=== PATIENT | male | born 1950 | race Asian ===

== ENCOUNTER 2018-08-18 08:24 | Day surgery (SDC) | payer MEDICARE, OTHER ==
[2018-08-18] MEDS ORDERED: IOHEXOL 300MG/ML 30 ML BTL (11:11)
[2018-08-18] MEDS: CIPROFLOXACIN 400 MG in D5W 200 ML IVPB (11:40)
[2018-08-18] MEDS ORDERED: PROPOFOL 20 ML (12:23)
[2018-08-18] MEDS ORDERED: ROCURONIUM 50 MG INJ (12:23)
[2018-08-18] MEDS ORDERED: SUGAMMADEX SODIUM 200 MG/2 ML VIAL IV (12:23)
[2018-08-18] MEDS ORDERED: FENTAnyl 50 MCG/ML VIAL IV ×2 (13:00)
[2018-08-18] MEDS ORDERED: hydrALAzine 20 MG INJ IV (13:00)
[2018-08-18] MEDS ORDERED: KETOROLAC 30 MG INJ IV (13:00)
[2018-08-18] MEDS ORDERED: ONDANSETRON 4 MG INJ IV (13:00)
[2018-08-18] MEDS ORDERED: OXYCODONE/ACETAMINOPHEN (5/325) TAB PO ×2 (13:00)
[2018-08-18] MEDS ORDERED: LABETALOL HCL 20MG INJ IV (13:00)
[2018-08-18] MEDS ORDERED: MEPERIDINE 25 MG INJ IV (13:00)
[2018-08-18] MEDS ORDERED: DIPHENHYDRAMINE 50 MG INJ IV (13:00)
[2018-08-18] MEDS ORDERED: EPHEDrine SULFATE 50 MG/5 ML SYG IV (13:00)
[2018-08-18] MEDS ORDERED: ALBUTEROL 0.083% (NEB) 2.5 MG/3 ML AMP HHN (13:00)
[2018-08-18] MEDS: FENTAnyl 50 MCG/ML VIAL IV (13:11)
[2018-08-18] MEDS: METOCLOPRAMIDE 10 MG INJ IV (13:11)
== END 2018-08-18 15:13 | disposition home or self-care (01) ==
LOC: SDS 08:24
DX: N13.5 Crossing vessel and stricture of ureter without hydronephrosis (principal); N20.1 Calculus of ureter
CPT/HCPCS: 52332; 74420

== ENCOUNTER 2018-09-01 06:00 | Day surgery (SDC) | payer MEDICARE, OTHER ==
[~2018-09-01 06:00] MED LIST: CIPROFLOXACIN 400MG/D5W 200 ML IVPB
[2018-09-01] MEDS ORDERED: LIDOCAINE 2% (SDV) 5 ML INJ (07:26)
[2018-09-01] MEDS ORDERED: MIDAZOLAM 1 MG/ML 2 ML INJ (07:26)
[2018-09-01] MEDS ORDERED: CEFAZOLIN 1 GM INJ (07:26)
[2018-09-01] MEDS ORDERED: PROPOFOL 40 ML (07:26)
[2018-09-01] MEDS ORDERED: FENTAnyl 50 MCG/ML VIAL (07:27)
[2018-09-01] MEDS ORDERED: ONDANSETRON 4 MG INJ (07:27)
[2018-09-01] MEDS ORDERED: DEXAMETHASONE 4 MG/ML 1 ML INJ (07:27)
[2018-09-01] MEDS ORDERED: FAMOTIDINE 20 MG INJ (07:27)
[2018-09-01] MEDS ORDERED: ONDANSETRON 4 MG INJ IV (07:30)
[2018-09-01] MEDS ORDERED: MEPERIDINE 25 MG INJ IV (07:30)
[2018-09-01] MEDS ORDERED: HYDROmorphONE 1 MG/5 ML IV SYRINGE IV ×2 (07:30)
[2018-09-01] MEDS ORDERED: OXYCODONE/ACETAMINOPHEN (5/325) TAB PO ×2 (07:30)
[2018-09-01] MEDS ORDERED: FENTAnyl 50 MCG/ML VIAL IV ×2 (07:30)
[2018-09-01] MEDS ORDERED: morphine (1 MG/ML) 10ML SYRINGE IV ×2 (07:30)
[2018-09-01] MEDS ORDERED: ALBUTEROL 0.083% (NEB) 2.5 MG/3 ML AMP HHN (07:30)
[2018-09-01] MEDS ORDERED: DIPHENHYDRAMINE 50 MG INJ IV (07:30)
[2018-09-01] MEDS ORDERED: LABETALOL HCL 20MG INJ IV (07:30)
[2018-09-01] MEDS ORDERED: CIPROFLOXACIN 400MG/D5W 200 ML (07:54)
[2018-09-01] MEDS ORDERED: EPHEDrine SULFATE 50 MG/5 ML SYG (08:11)
[2018-09-01] MEDS ORDERED: FUROSEMIDE 20 MG INJ (08:41)
== END 2018-09-01 10:30 | disposition home or self-care (01) ==
LOC: SDS 06:00
DX: N20.1 Calculus of ureter (principal); N40.0 Benign prostatic hyperplasia without lower urinary tract symptoms; I10 Essential (primary) hypertension
CPT/HCPCS: 50590; 74430

== ENCOUNTER 2018-10-12 12:17 | Day surgery (SDC) | payer MEDICARE, OTHER ==
[2018-10-12] MEDS: CIPROFLOXACIN 400MG/D5W 200 ML IVPB (10:00)
[2018-10-12] MEDS: ACETAMINOPHEN 500 MG TAB PO (13:26)
[2018-10-12] MEDS ORDERED: PROPOFOL 40 ML (13:49)
[2018-10-12] MEDS ORDERED: LIDOCAINE 2% (SDV) 5 ML INJ (13:49)
[2018-10-12] MEDS ORDERED: CEFAZOLIN 1 GM INJ (13:49)
[2018-10-12] MEDS ORDERED: ONDANSETRON 4 MG INJ (13:50)
[2018-10-12] MEDS ORDERED: MIDAZOLAM 1 MG/ML 2 ML INJ (13:50)
[2018-10-12] MEDS ORDERED: FENTAnyl 50 MCG/ML VIAL (13:50)
[2018-10-12] MEDS ORDERED: DEXAMETHASONE 4 MG/ML 1 ML INJ (13:50)
[2018-10-12] MEDS ORDERED: FAMOTIDINE 20 MG INJ (13:50)
[2018-10-12] MEDS ORDERED: HYDROmorphONE 1 MG/5 ML IV SYRINGE IV (15:00)
[2018-10-12] MEDS ORDERED: morphine (1 MG/ML) 10ML SYRINGE IV ×2 (15:00)
[2018-10-12] MEDS ORDERED: DIPHENHYDRAMINE 50 MG INJ IV (15:00)
[2018-10-12] MEDS ORDERED: FENTAnyl 50 MCG/ML VIAL IV ×2 (15:00)
[2018-10-12] MEDS ORDERED: ALBUTEROL 0.083% (NEB) 2.5 MG/3 ML AMP HHN (15:00)
[2018-10-12] MEDS ORDERED: OXYCODONE/ACETAMINOPHEN (5/325) TAB PO ×2 (15:00)
[2018-10-12] MEDS ORDERED: LABETALOL HCL 20MG INJ IV (15:00)
[2018-10-12] MEDS: IOHEXOL 300MG/ML 30 ML BTL (15:20)
[2018-10-12] MEDS: MEPERIDINE 25 MG INJ IV (15:55)
[2018-10-12] MEDS: ONDANSETRON 4 MG INJ IV (15:57)
[2018-10-12] MEDS: HYDROmorphONE 1 MG/5 ML IV SYRINGE IV ×2 (16:01→16:12)
== END 2018-10-12 17:40 | disposition home or self-care (01) ==
LOC: SDS 12:17
DX: N20.1 Calculus of ureter (principal)
CPT/HCPCS: 52356; 74420

== ENCOUNTER 2019-06-08 13:53 | Emergency (ER) | payer MEDICARE, OTHER ==
[2019-06-08] MEDS: HYDROCODONE/APAP (5/325) TAB PO (16:44)
[2019-06-08] MEDS: NAPROXEN 500 MG TAB PO (17:21)
== END 2019-06-08 18:07 | disposition home or self-care (01) ==
LOC: FTE 13:53
DX: M54.41 Lumbago with sciatica, right side (principal); I10 Essential (primary) hypertension; M62.838 Other muscle spasm
CPT/HCPCS: 72100; 99283-25